=== PATIENT | male | born 1980 | race Caucasian/White ===

== ENCOUNTER 2020-07-07 13:25 | Outpatient (CLI) | payer OTHER, SELFPAY ==
--- NOTE | 2020-07-07 13:00 | DI.RAD_ITS ---
EXAM: XR KNEE RT 3V AP,LAT,POLA CLINICAL HISTORY: Knee pain TECHNIQUE: 2D digital imaging was performed. COMPARISON: No exams were available for comparison FINDINGS: There is no evidence fracture. There may be a slight increased amount joint fluid here. No degenera tive narrowing. No osteophytes. No significant osseous lesions. IMPRESSION: DATA REPOSITORY: RADIATION DOSE DELIVERED:
== END 2020-07-07 13:26 | disposition home or self-care (01) ==
LOC: DIORS 13:25
PROVIDERS: Visit Provider Student in an Organized Health Care Education/Training Program
DX: M25.561 Pain in right knee (principal)
CPT/HCPCS: 73562

== ENCOUNTER 2020-07-08 13:58 | Outpatient (CLI) | payer OTHER, SELFPAY ==
--- NOTE | 2020-07-08 08:45 | DI.MRI_ITS ---
EXAM: MR LOWER JOINT RT WO CLINICAL HISTORY: Traumatic knee effusion, internal derangement rt knee, M23.91, M25.461 TECHNIQUE: Multiplanar multisequence MRI of the knee was performed. COMPARISON: CR XR KNEE RT 3V AP,LAT,POLA from 07/07/2020 FINDINGS: EFFUSION: There is a moderate-large knee joint effusion. There is no evidence of Howell's cyst in the popliteal fossa. MARROW:There is no evidence of fracture or bone contusion. Benign bone island is noted in the medial femoral condyle. There is a prominent chondral defect in the [place] cartilage over the lateral fe moral condyle, posterior weight-bearing surface with full-thickness cartilage loss at this level, thi s defect measuring 2 cm AP by 0.5 cm wide by 3.8 cm deep (full-thickness). There is no intraosseous edema in the lateral femoral condyle over this region. Similar findings are not seen in the medial c ompartment. However, there is cartilage abnormality in the patellofemoral compartment (see below) PATELLOFEMORAL COMPARTMENT: The quadriceps tendon is intact. The patellar ligament is intact. Although there is no thinning of the retropatellar cartilage, there is a deep fissure in the mid aspe ct of the retropatellar cartilage which extends full-thickness but is not associated with abnormal briggs barticular signal or in the posterior patella. There is some mild signal abnormality in the [place] cartilage in the corresponding intercondylar notch of the distal femur.There is no intraosseous sign al to suggest recent patellar dislocation. There are no patellar retinacular tears. CRUCIATE LIGAMENTS: The anterior cruciate ligament is intact.The posterior cruciate ligament is intac t. MEDIAL COMPARTMENT/MEDIAL MENISCUS: There are no tears of the medial meniscus evident.No meniscal ext rusion nor intrusion. No meniscocapsular separation. There are no chondral defects, osteochondral defects, subarticular marrow edema, nor osteophytes evid ent. MEDIAL COLLATERAL LIGAMENT: Intact LATERAL COMPARTMENT/LATERAL MENISCUS: There is no evidence of lateral meniscal tear.Large chondral de fect is noted over the posterior weight-bearing surface of the lateral femoral condyle, as described above.No abnormal signal in the overlying lateral femoral condyle. However, posterior laterally inti mately associated with the musculotendinous junction of the popliteus there is a well-defined 1.3 x 0 .8 x 0.6 cm focus of signal abnormality which may represent the cartilage from the large defect. Thi s posterolateral finding does not have typical appearance of a fabella. ILIOTIBIAL BAND: Intact LATERAL COLLATERAL LIGAMENT COMPLEX: The fibular collateral ligament is intact. The biceps femoris t endon is intact.Popliteus musculotendinous junction region finding as described above. This may be r elated to the large chondral defect over the lateral femoral IMPRESSION: 1. There is a large full-thickness chondral defect the posterior weight-bearing surface of the latera l femoral condyle which measures 2 cm AP x 0.5 cm wide by 3.8 cm deep (full-thickness). There is onl y minimal subarticular edema in the lateral femoral condyle at this level. There is a well-defined 1 3 x 8 x 6 millimeter focus of signal abnormality posterolaterally intimately associated with the musc ulotendinous junction of the popliteus immediately posteromedial to the fibular styloid. There is po ssibly that this represents the chunk of cartilage. No other findings in the lateral compartment inc luding no evidence of lateral meniscal tear. 2. There is also a deep full-thickness fissure in the mid aspect of the retropatellar cartilage and m ild cartilage changes in the corresponding cartilage over the distal femur at this level. The retrop atellar cartilage is otherwise normal thickness and there is no abnormal intraosseous signal in the p atella. There is no abnormal intraosseous signal to suggest recent patellar dislocation. 3. The cruciate and collateral ligaments are intact, as is the iliotibial band. 4. There are no meniscal tears evident. Also no meniscal extrusion nor intrusion. There is no menis cocapsular separation. 5. There is a large joint effusion. There is no Howell cyst in the popliteal fossa. DATA REPOSITORY:
== END 2020-07-08 14:18 ==
PROVIDERS: Visit Provider Student in an Organized Health Care Education/Training Program
DX: M25.461 Effusion, right knee (principal); M23.91 Unspecified internal derangement of right knee; M25.561 Pain in right knee; S83.31XA Tear of articular cartilage of right knee, current, initial encounter
CPT/HCPCS: 73721

== ENCOUNTER 2021-02-16 10:15 | Emergency (ER) | payer OTHER, SELFPAY ==
[2021-02-16 10:29] VITALS: BP 119/75; PULSE 61; RESP 16; TEMP 36.7; O2SAT 99
--- NOTE | 2021-02-16 10:30 | DI.RAD_ITS ---
Exam(s) XR LUMBAR SPINE COMPLETE EXAM: XR LUMBAR SPINE COMPLETE CLINICAL HISTORY: Lower back pain. TECHNIQUE: 2D digital imaging was performed of the lumbar spine. Five images were obtained. AP, la teral, right oblique, left oblique and L5-S1 spot views were obtained. COMPARISON: No exams were available for comparison FINDINGS: BONES: No fracture or destructive lesion. Vertebral bodies are unremarkable. No facet hypertrophy phillip ntified. Small osteophytes are seen anteriorly at T11-T12 and L4. DISKS: Intervertebral disc spaces are maintained. ALIGNMENT: Lumbar spinal alignment is within normal limits. No spondylolysis or spondylolisthesis. SOFT TISSUE: Normal. IMPRESSION: Minimal degenerative changes are seen in the lumbar spine. DATA REPOSITORY: RADIATION DOSE DELIVERED:
--- NOTE | 2021-02-16 10:40 | ED.GENADUL_ITS ---
Discharge Plan Disposition Patient Disposition: HOME Condition: Stable Discharge Details Clinical Impression: Lumbar back sprain Primary Care Provider: Unknown,Unknown ED Provider: Tara Campbell Home Meds and New Rx's Prescriptions: New cyclobenzaprine 10 mg tablet 10 mg PO TID PRN (Reason: muscle spasm) Qty: 10 RF: 0 lidocaine 5 % adhesive patch,medicated 1 patch topical DAILY Qty: 15 RF: 0 Continued fluticasone propionate [Flonase Allergy Relief] 50 mcg/actuation spray,suspension 1 spray intranasal DAILY RF: 0 Discharge Instructions Instructions: Low Back Strain (ED), Lower Back Exercises (ED) Additional Instructions: XRays show mild degenerative changes, normal alignment and no other abnormalities. Alternate Ice and Heat. Try massage or consider Chiropractor. Use muscle relaxers up to 3 times daily as needed for muscle spasm. Do not drive or operate heavy machinery they may make you sleepy. Please take Tylenol or Ibuprofen with food every 4-6 hours as needed for pain and swelling. Follow up with primary care provider in 3-5 days. Return to ED sooner if any worsening back pain, nausea vomiting, loss of bowel or bladder control or numbness tingling or weakness or concerns. Increase oral fluids. Stand Alone Forms: Work Release Discharge Data Discharge Date/Time-TO BE ENTERED AT DEPARTURE: 02/16/21 11:55 Medical Decision Making 40-year-old male presents to the ER chief complaint of left lower lumbar back pain and muscle spasm which began last night after playing a game of basketball. Patient denies any radiation of pain down his legs. No loss of bowel or blad geetha control no numbness tingling or saddle anesthesia. He denies any problems urinating or burning with urination. He is walking at a tilt favoring his left side. He took some naproxen with little to no relief. He has a past medical history of right knee cartilage tear. XR Lumbar Spine: FINDINGS: BONES: No fracture or destructive lesion. Vertebral bodies are unremarkable. No facet hypertrophy identified. Small osteophytes are seen anteriorly at T11-T12 and L4. DISKS: Intervertebral disc spaces are maintained. ALIGNMENT: Lumbar spinal alignment is within normal limits. No spondylolysis or spondylolisthesis. SOFT TISSUE: Normal. IMPRESSION: Minimal degenerative changes are seen in the lumbar spine. Patient was given extra lidocaine patch here in the department. Discussed the x-rays with him he verbalized understanding patient ambulatory here in department discussed alternating ice and heat and follow-up with consideration of massage and possible chiropractor. Patient verbalized understanding. This text was generated using LEHRation system, please disregard any oddities of phrase or misspellings. HPI General Mode of arrival: ambulatory . Date/Time Provider Initiated Documentation: 02/16/21 10:17 . Limitations to Documentation: no limitations . Information obtained by: patient, RN notes reviewed and old records reviewed . HPI Narrative: 40-year-old male presents to the ER chief complaint of left lower lumbar back pain and muscle spasm which began last night after playing a game of basketball. Patient denies any radiation of pain down his legs. No loss of bowel or bladder control no numbness tingling or saddle anesthesia. He denies any problems urinating or burning with urination. He is walking at a tilt favoring his left side. He took some naproxen with little to no relief. He has a past medical history of right knee cartilage tear. Related Data Home Medications Medication Instructions Recorded Confirmed fluticasone propionate 50 1 spray INTRANASAL DAILY 07/27/20 02/16/21 mcg/actuation nasal spray,suspension cyclobenzaprine 10 mg PO TID PRN #10 tab 02/16/21 lidocaine 1 patch TOPICAL DAILY #15 ea 02/16/21 Previous Rx's Medication Instructions Recorded cyclobenzaprine 10 mg PO TID PRN #10 tab 02/16/21 lidocaine 1 patch TOPICAL DAILY #15 ea 02/16/21 Allergies Allergy/AdvReac Type Severity Reaction Status Date / Time No Known Allergies Allergy Unverified 02/16/21 10:33 General Stated Complaint: Nk/Back Pain NEREIDA: 4 Review of Systems All systems reviewed & are unremarkable except as noted in HPI and below ENT Ears, Nose, Mouth, and Throat: Denies neck pain Musculoskeletal Musculoskeletal: Reports abnormal gait, Reports back pain, Denies myalgias, Denies muscle weakness, Denies neck pain, Denies numbness, Denies radiating pain into limb, Reports stiffness and Denies tingling Neurologic Neurologic: Reports abnormal gait, Denies numbness and Denies tingling [facility] Active Problem List Tear of cartilage of right knee (Acute ~06/2020) Effusion of right knee (Acute) Internal derangement of right knee (Acute) Encounter for screening for other viral diseases (Acute) Hypertrophy of inferior nasal turbinate (Chronic) Deviated nasal septum (Chronic) Nasal valve collapse (Chronic) Chronic rhinitis (Chronic) Nasal congestion (Chronic) Social History Smoking/Tobacco Use Status: Never Smoking risk assessment performed?: Yes Drug use: Never Substance use type: does not use Current gender identity: male Exam Back/Spine/Pelvis Back: no CVA tenderness Cervical Spine: normal cervical lordosis Thoracic/Lumbar Spine: paraspinal tenderness (left) and tilt present Pelvis: no pain with anterior-posterior compression Course Vital Signs Vital signs: Vital Signs Temperature 36.7 C 02/16/21 10:29 Pulse 61 02/16/21 10:29 Respiratory Rate 16 02/16/21 10:29 Blood Pressure 119/75 02/16/21 10:29 Pulse Oximetry 99 02/16/21 10:29 Temperature 36.7 C 02/16/21 10:29 Temperature Source Skin 02/16/21 10:29 Pulse 61 02/16/21 10:29 Respiratory Rate 16 02/16/21 10:29 Respiratory Effort Non-Labored 02/16/21 10:29 Blood Pressure 119/75 02/16/21 10:29 Blood Pressure Position Sitting 02/16/21 10:29 Pulse Oximetry 99 02/16/21 10:29 Oxygen Delivery Method Room Air 02/16/21 10:29 Oxygen Flow Rate 0 02/16/21 10:29 Pain Level 8 02/16/21 10:29 PAWSS Have you Been Recently Intoxicated or Drunk Within the Last 30 days?: Yes Have you Ever Experienced Previous Episodes of Alcohol Withdrawal?: No Have you ever Experienced Withdrawal Seizures?: No Have you ever Experienced Delirium Tremens(DT)s?: No Have you ever undergone Alcohol Rehabilitation Treatment (i.e, inpt ot outpatient treatment programs)?: No Have you ever Experienced Blackouts?: No Have you ever Combined Alcohol with other Downers within the last 90 days?: No Have you ever Combined Alcohol with any other Substance of Abuse during the last 90 days?: No Positive Blood Alcohol level on Presentation? [PCS.BAL]: No Evidence of Increased Autonomic Activity (i.e. HR>120, tremor, sweating, sunita tation, nausea)?: No Result: 1
[2021-02-16] MEDS: Cyclobenzaprine 10 MG TAB PO (10:43)
[2021-02-16] MEDS: Lidocaine 5% Patch 1 PATCH TP (10:43)
[2021-02-16] MEDS: Cyclobenzaprine 10 MG TAB, 3 TABS/BTL PO (11:51)
[2021-02-16 11:52] LABS: Clarity Clear (Clear); Specific Gravity >= 1.030 (1.005-1.025); pH 5.5 (5-8)
[2021-02-16 11:53] LABS: Bilirubin Negative (Negative); Blood Negative (Negative); Glucose Negative (Negative); Ketones Negative (Negative); Leukocyte Esterase Negative (Negative); Nitrite Negative (Negative); Urobilinogen 0.2 EU/dL (Up TO 0.2)
== END 2021-02-16 11:55 | disposition home or self-care (01) ==
PROVIDERS: Emergency Provider Registered Nurse Emergency
DX: S39.012A Strain of muscle, fascia and tendon of lower back, initial encounter (principal); X58.XXXA Exposure to other specified factors, initial encounter
CPT/HCPCS: 99283; 72110; 81003

== ENCOUNTER 2021-09-20 21:00 | Emergency (ER) | payer OTHER, SELFPAY ==
[2021-09-20 21:33] VITALS: BP 126/69; PULSE 73; RESP 18; TEMP 36.7; O2SAT 99
--- NOTE | 2021-09-20 21:43 | ED.GENADUL_ITS ---
Discharge Plan Disposition Patient Disposition: [facility] Condition: Stable Discharge Details Clinical Impression: Testicular pain, right Primary Care Provider: Unknown,Unknown ED Provider: Tara Campbell Home Meds and New Rx's Prescriptions: No Action fluticasone propionate [Flonase Allergy Relief] 50 mcg/actuation spray,suspension 1 spray intranasal DAILY Rx Instructions: administer into each nostril Discharge Data Discharge Date/Time-TO BE ENTERED AT DEPARTURE: 09/20/21 22:36 Medical Decision Making 41 year old male presents with Right testicle pain which began acutely at approximately 5 PM while getting out of his truck after playing some golf. He does endorse some nausea no significant abdominal pain no problems urinating. He does have a history of testicular torsion at the age of 16 which spontaneously resolved. He denies any trauma. No other associated symptoms. On initial exam the right testicle is retracted absent cremasteric reflex, testicle is high riding. 2152: [facility] [place] for emergent urology consultation and transfer request. 2201: [facility] [place] to ED or Inpatient at this time. 2202: [facility] transfer center called for transfer request. Spoke with ER provider Dr. Garza she recommends manually reducing it prior to transfer. 2218: Attempted detorsion maneuver manually, post procedure testicle appears less retracted and soft however patient is report that it is still aching. We will continue to go forward with the transfer for ultrasound and further evaluation to rule out torsion. EMS called to arrange transfer to [facility] ER. Report called and given to Ashlyn MARRERO the ER. Staff here informed. Patient remained in hemodynamically stable condition. HPI General Mode of arrival: ambulatory . Date/Time Provider Initiated Documentation: 09/20/21 21:38 . Limitations to Documentation: no limitations . Information obtained by: patient, RN notes reviewed and old records reviewed . HPI Narrative: 41 year old male presents with Right testicle pain which began acutely at approximately 5 PM while getting out of his truck after playing some golf. He does endorse some nausea no significant abdominal pain no problems urinating. He does have a history of testicular torsion at the age of 16 which spontaneously resolved. He denies any trauma. No other associated symptoms. On initial exam the right testicle is retracted absent cremasteric reflex, testicle is high riding. Related Data Home Medications Medication Instructions Recorded Confirmed fluticasone propionate 50 1 spray intranasal DAILY 07/27/20 09/20/21 mcg/actuation nasal spray,suspension (Flonase Allergy Relief) Allergies Allergy/AdvReac Type Severity Reaction Status Date / Time No Known Allergies Allergy Unverified 09/20/21 21:44 General Stated Complaint: GenMedical NEREIDA: 3 Review of Systems All systems reviewed & are unremarkable except as noted in HPI and below Genitourinary Genitourinary: Reports genital pain, Denies dysuria, Reports scrotal swelling and Reports testicular pain PENDING SALE TO [facility] All Active Problems (Updated 09/24/21 @ 09:56 by Tara Campbell NP) Lumbar back sprain (Acute) Testicular pain, right (Acute) Tear of cartilage of right knee (Acute ~06/2020) Effusion of right knee (Acute) Internal derangement of right knee (Acute) Encounter for screening for other viral diseases (Acute) Hypertrophy of inferior nasal turbinate (Chronic) Deviated nasal septum (Chronic) Nasal valve collapse (Chronic) Chronic rhinitis (Chronic) Nasal congestion (Chronic) Active Problem List Tear of cartilage of right knee (Acute ~06/2020) Effusion of right knee (Acute) Internal derangement of right knee (Acute) Encounter for screening for other viral diseases (Acute) Hypertrophy of inferior nasal turbinate (Chronic) Deviated nasal septum (Chronic) Nasal valve collapse (Chronic) Chronic rhinitis (Chronic) Nasal congestion (Chronic) Social History Smoking/Tobacco Use Status: Never Smoking risk assessment performed?: Yes Alcohol Intake: current Alcohol Intake frequency: a few times a month Drug use: Never Substance use type: does not use Current gender identity: male Do you feel safe at home: Yes Do you feel safe in your relationship?: Yes Exam Narrative Exam Narrative: Constitutional: Alert and oriented x3. Appears stated age. Normal body habitus. Head: Normocephalic, no trauma. Chest: RRR, Normal S1, S2, distal pulses intact. Resp: Lungs clear to auscultation bilaterally, no wheezes, rales, or rhonchi. Abdomen: Soft, non-distended, Normoactive bowel sounds all 4 quads. Musculoskeletal: Normal gait, 5/5 strength to all four extremities. Skin: No suspicious rashes or lesions. Capillary refill less than 2 sec. Neurologic: Cranial nerves II-XII intact. Alert and oriented x 3. Motor: No deficits noted. Sensory: Intact bilaterally all 4 extremities. Hematologic/Lymphatic: No ecchymosis, no lymphadenopathy. Male General Exam: Yes tenderness (Right testicle, hard, absent cremasteric reflex, retracted) Penis: normal penis Meatus: meatus normal and no meatla discharge Scrotum: cremasteric reflex absent on the right Testes: epididymal tenderness, testicular tenderness on the right and high- riding testicle on the right Course Vital Signs Vital signs: Vital Signs Temperature 36.7 C 09/20/21 21:33 Pulse 73 09/20/21 21:33 Respiratory Rate 18 09/20/21 21:33 Blood Pressure 126/69 09/20/21 21:33 Pulse Oximetry 99 09/20/21 21:33 Temperature 36.7 C 09/20/21 21:33 Temperature Source Tympanic 09/20/21 21:33 Pulse 73 09/20/21 21:33 Respiratory Rate 18 09/20/21 21:33 Blood Pressure 126/69 09/20/21 21:33 Blood Pressure Position Sitting 09/20/21 21:33 Pulse Oximetry 99 09/20/21 21:33 Oxygen Delivery Method Room Air 09/20/21 21:33 Oxygen Flow Rate 0 09/20/21 21:33 Pain Level 8 09/20/21 21:33
[2021-09-20 21:46] VITALS: BP 113/94; PULSE 92; O2SAT 93
[2021-09-20] MEDS: Normal Saline 1,000 ML 1000 ML IV (22:39)
[2021-09-20] MEDS: Ondansetron 4 MG/2 ML VIAL IVP (22:39)
== END 2021-09-20 22:36 ==
PROVIDERS: Emergency Provider Registered Nurse Emergency
DX: N50.811 Right testicular pain (principal)
CPT/HCPCS: 96361; 96374; 96375; 99285; 99284; J2405

== ENCOUNTER 2023-04-06 21:25 | Outpatient (REF) | payer OTHER, SELFPAY ==
[2023-04-08 12:27] LABS: Chlamydia Result Negative (Negative); GC Result Negative (Negative)
== END 2023-04-06 21:26 | disposition home or self-care (01) ==
LOC: LBN 21:25
PROVIDERS: Visit Provider Nurse Practitioner Family
DX: N50.812 Left testicular pain (principal)
CPT/HCPCS: 87491; 87591